=== PATIENT | female | born 1980 | race Caucasian/White ===

== ENCOUNTER 2019-05-18 22:58 | Inpatient (IN) | payer BC ==
[2019-05-18 23:33] VITALS: BMI 27.2
[2019-05-19] MEDS ORDERED: Butorphanol Tartrate 1 MG/ML VIAL SLOW IVP PRN (00:31)
[2019-05-19] MEDS ORDERED: Ondansetron PF 4 MG/2 ML Vial IVP PRN ×3 (00:31→13:34)
[2019-05-19] MEDS ORDERED: Promethazine HCl 25 MG/ML VIAL IM PRN ×2 (00:31→10:36)
[2019-05-19] MEDS ORDERED: HYDROcodone/Acetaminophen 5/325 mg Tablet PO PRN ×2 (00:31)
[2019-05-19] MEDS ORDERED: NS / Oxytocin 40 units/1000ml 1,000 ML IV PRN (00:31)
[2019-05-19] MEDS ORDERED: NS w/ Oxytocin 10 units 500 ML IV SCH (00:31)
[2019-05-19] MEDS ORDERED: Lactated Ringer's 1,000 ML IV SCH (00:31)
[2019-05-19] MEDS ORDERED: Ibuprofen 800 MG TAB PO PRN (00:31)
[2019-05-19] MEDS ORDERED: Lidocaine 1% (PF) 30 ML VIAL SC PRN (00:31)
[2019-05-19] MEDS ORDERED: hydrALAZINE 20 MG/ML VIAL SLOW IVP PRN ×2 (00:31→13:34)
[2019-05-19] MEDS ORDERED: Zolpidem Tartrate 5 MG TAB PO PRN ×2 (00:31→13:34)
[2019-05-19] MEDS ORDERED: Penicillin G Potassium 5 MILL.UNITS in Sodium Chloride 0.9% 100 ML IVPB SCH (00:31)
[2019-05-19] MEDS ORDERED: Penicillin G Potassium 5 MILL.UNITS VIAL ONE (00:40)
[2019-05-19 01:08] LABS: Hemoglobin 12.5 g/dL (12.0-16.0); Mean Corpuscular HGB CONC 34.8 g/dL (32.0-36.0); Mean Corpuscular Hemoglobin 33.4 pg (27.0-31.0); Mean Corpuscular Volume 96.1 fL (78.0-98.0); Platelet Count 172 thou/uL (130-400); RBC Distribution Width 11.7 % (11.5-14.5); Red Blood Cell (RBC) Count 3.76 mill/uL (4.20-5.40); White Blood Cell (WBC) Count 8.6 thou/uL (4.8-10.8)
[2019-05-19 01:51] LABS: HBSAg Index 0.17 S/CO (0-0.99); Hep B Surf Ag Non-Reactive S/CO (NonReactive)
[2019-05-19] MEDS: Penicillin G 2.5 MILL.units 2.5 MILL.UNITS in Premix Bag 1 BAG IVPB SCH ×3 (04:02→23:24)
[2019-05-19 05:37] LABS: Syphilis Antibody Nonreactive (Nonreactive); Syphilis Antibody Index 0.04 S/CO (<1.00 Non-Reactive)
[2019-05-19] MEDS ORDERED: Fentanyl 4 mcg/Bup 0.1% Cadd 100 ML ONE (09:14)
[2019-05-19] MEDS ORDERED: Fentanyl 100 MCG/2 ML VIAL ONE (09:37)
[2019-05-19] MEDS ORDERED: Fentanyl 100 MCG/2 ML VIAL EPIDURAL SCH (09:50)
[2019-05-19] MEDS ORDERED: Acetaminophen 325 MG TAB PO PRN (10:36)
[2019-05-19] MEDS ORDERED: Naloxone HCl 0.4 mg/ml Vial IVP PRN ×2 (10:36)
[2019-05-19] MEDS ORDERED: Lactated Ringer's 500 ML IV PRN (10:36)
[2019-05-19] MEDS ORDERED: ePHEDrine/0.9% NaCl/PF SYRINGE 50 mg/10 ml SLOW IVP PRN (10:36)
[2019-05-19] MEDS ORDERED: diphenhydrAMINE 50 MG/ML VIAL IVP PRN (10:36)
[2019-05-19] MEDS: Lactated Ringer's 1,000 ML IV SCH ×2 (10:39→23:24)
[2019-05-19] MEDS ORDERED: Communication Order-Pharmacy FS SCH (10:45)
[2019-05-19] MEDS ORDERED: Fentanyl 4 mcg/Bupivacaine 0.1% Cassette 100 ML EPIDURAL SCH (10:45)
[2019-05-19] MEDS ORDERED: Acetaminophen/Codeine 30-300mg Tablet PO PRN ×2 (13:34)
[2019-05-19] MEDS ORDERED: Milk Of Magnesia 30 ML UDCUP PO PRN (13:34)
[2019-05-19] MEDS ORDERED: Misoprostol 200 MCG TAB VAG PRN (13:34)
[2019-05-19] MEDS ORDERED: Benzocaine-Menthol 82.5 ML CAN TOP PRN (13:34)
[2019-05-19] MEDS ORDERED: diphenhydrAMINE 25 MG CAP PO PRN (13:34)
[2019-05-19] MEDS ORDERED: Bisacodyl 10 MG SUPP PR PRN (13:34)
[2019-05-19] MEDS ORDERED: Adacel (T-DAP) 0.5 ML SYRINGE IM ONE (13:34)
[2019-05-19] MEDS ORDERED: Lanolin Ointment 7 GM TUBE TOP PRN (13:34)
[2019-05-19] MEDS ORDERED: Preparation H Ointment 28 GM TUBE PR PRN (13:34)
[2019-05-19] MEDS ORDERED: NS / Oxytocin 40 units/1000ml 1,000 ML IV SCH (13:45)
[2019-05-19] MEDS: Ibuprofen 800 MG TAB PO SCH ×2 (15:30→22:48)
[2019-05-19] MEDS: Ferrous Sulfate 325 MG TAB PO SCH (17:01)
[2019-05-19] MEDS: Docusate Calcium (SURFAK) 240 MG CAP PO SCH (22:49)
[2019-05-20] MEDS ORDERED: Sodium Chloride 0.9% 10 ML ONE (02:40)
[2019-05-20] MEDS: Ibuprofen 800 MG TAB PO SCH ×3 (05:29→22:05)
[2019-05-20 05:41] LABS: Hemoglobin 11.9 g/dL (12.0-16.0); Mean Corpuscular HGB CONC 33.9 g/dL (32.0-36.0); Mean Corpuscular Hemoglobin 33.1 pg (27.0-31.0); Mean Corpuscular Volume 97.7 fL (78.0-98.0); Mean Platelet Volume 7.9 fL (7.4-10.4); Platelet Count 161 thou/uL (130-400); RBC Distribution Width 11.8 % (11.5-14.5); Red Blood Cell (RBC) Count 3.59 mill/uL (4.20-5.40); White Blood Cell (WBC) Count 10.3 thou/uL (4.8-10.8)
[2019-05-20] MEDS: Prenatal Vitamin 1 TAB PO SCH ×2 (09:39→09:47)
[2019-05-20] MEDS: Docusate Calcium (SURFAK) 240 MG CAP PO SCH ×2 (09:39→22:06)
[2019-05-20] MEDS: Ferrous Sulfate 325 MG TAB PO SCH ×2 (09:47→20:19)
[2019-05-21] MEDS: Ibuprofen 800 MG TAB PO SCH ×2 (06:03→14:04)
[2019-05-21] MEDS: Ferrous Sulfate 325 MG TAB PO SCH ×2 (09:16→18:16)
[2019-05-21] MEDS: Prenatal Vitamin 1 TAB PO SCH (09:16)
[2019-05-21] MEDS: Docusate Calcium (SURFAK) 240 MG CAP PO SCH (09:17)
[2019-05-21 20:58] VITALS: BP 127/84; TEMP 98
== END 2019-05-21 21:48 | disposition home or self-care (01) | DRG 807 ==
LOC: L&D/OP 22:58 → L&D 05-19 00:04 → 3SW 05-19 16:43
PROVIDERS: ADMIT Obstetrics & Gynecology; ATTEND Obstetrics & Gynecology
PROC: 3E033VJ Introduction of Other Hormone into Peripheral Vein, Percutaneous Approach (ICD-10-PCS; principal; 2019-05-19)
PROC: 10E0XZZ Delivery of Products of Conception, External Approach (ICD-10-PCS; 2019-05-19)
DX: O99.824 Streptococcus B carrier state complicating childbirth (principal); Z37.0 Single live birth; O70.1 Second degree perineal laceration during delivery; Z3A.37 37 weeks gestation of pregnancy
CPT/HCPCS: 36415; 51702; 85027; 86780; 86850; 86900; 86901; 87340; 90715; 99285; J2001; J2540; J2590; J3010

== ENCOUNTER 2020-11-29 08:17 | Outpatient (CLI) | payer BC | END 2020-11-29 08:18 | disposition home or self-care (01) | LOC: BICMAMMO 08:17 | PROVIDERS: ATTEND Obstetrics & Gynecology | DX: Z12.31 Encounter for screening mammogram for malignant neoplasm of breast (principal) | CPT/HCPCS: 77063; 77067 ==

== ENCOUNTER 2022-03-29 08:47 | Outpatient (CLI) | payer BC | END 2022-03-29 08:48 | disposition home or self-care (01) | LOC: BICMAMMO 08:47 | PROVIDERS: ATTEND Obstetrics & Gynecology | DX: Z12.31 Encounter for screening mammogram for malignant neoplasm of breast (principal) | CPT/HCPCS: 77063; 77067 ==

== ENCOUNTER 2023-06-04 12:26 | Outpatient (CLI) | payer BC | END 2023-06-04 12:27 | disposition home or self-care (01) | LOC: BICMAMMO 12:26 | PROVIDERS: ATTEND Obstetrics & Gynecology | DX: Z12.31 Encounter for screening mammogram for malignant neoplasm of breast (principal) | CPT/HCPCS: 77063; 77067 ==

== ENCOUNTER 2023-08-09 09:02 | Outpatient (CLI) | payer BC ==
[2023-08-09] MEDS ORDERED: Magnevist 469MG/ML 20 ML VIAL ONE (13:57)
== END 2023-08-09 09:03 | disposition home or self-care (01) ==
LOC: BICMRI 09:02
PROVIDERS: ATTEND Internal Medicine Gastroenterology
DX: Z12.11 Encounter for screening for malignant neoplasm of colon (principal); Z80.0 Family history of malignant neoplasm of digestive organs
CPT/HCPCS: 74183

== ENCOUNTER 2025-08-27 08:23 | Outpatient (CLI) | payer BC | END 2025-08-27 08:24 | disposition home or self-care (01) | LOC: BICRAD 08:23 | PROVIDERS: ATTEND Family Medicine Sports Medicine | DX: M54.50 Low back pain, unspecified (principal); M47.816 Spondylosis without myelopathy or radiculopathy, lumbar region | CPT/HCPCS: 72100 ==